=== PATIENT | male | born 1990 | race Hispanic/Latino ===

== ENCOUNTER 2024-06-13 07:45 | Outpatient (CLI) | payer OTHER ==
[2024-06-13 09:00] LABS: #Basophils 0.01 10x3/uL (0.0-0.2); #Eosinophils 0.14 10x3/uL (0.0-0.5); #Monocytes 0.71 10x3/uL (0.0-1.1); %Basophils 0.1 % (0.0-2.0); %Eosinophils 1.9 % (0.0-6.0); %Lymphocytes 24.4 % (18.0-47.0); %Monocytes 9.4 % (0.0-10.0); %Neutrophils 63.8 % (40.0-75.0); Hematocrit 48.2 % (38.8-50.0); Hemoglobin 15.3 g/dL (13.5-17.5); Mean Corpuscular HGB CONC 31.7 g/dL (32.0-36.0); Mean Corpuscular Hemoglobin 28.2 pg (27.0-33.0); Mean Corpuscular Volume 88.9 fL (81.2-95.1); Mean Platelet Volume 10.5 fL (7.4-10.4); Platelet Count 295 10x3/uL (150-450); Red Blood Cell (RBC) Count 5.42 10x6/uL (4.32-5.72); White Blood Cell (WBC) Count 7.5 10x3/uL (3.5-10.5)
[2024-06-13 09:54] LABS: Anion Gap 14 mmol/L (10-20); BUN (Urea Nitrogen) 10 mg/dL (8.9-20.6); Calc. Creatinine Clearance 0 mL/min (70-130); Calcium 9.4 mg/dL (7.8-10.44); Carbon Dioxide 24 mmol/L (22-29); Chloride 105 mmol/L (98-107); Estimated GFR 120; Glucose 104 mg/dL (70-105); Potassium 4.2 mmol/L (3.5-5.1); Sodium 139 mmol/L (136-145)
== END 2024-06-13 07:46 | disposition home or self-care (01) ==
LOC: CSHLAB 07:45
PROVIDERS: ATTEND Specialist
DX: Z01.818 Encounter for other preprocedural examination (principal); K60.30 Anal fistula, unspecified
CPT/HCPCS: 80048; 85025; 93005; 93010

== ENCOUNTER 2024-06-17 10:06 | Day surgery (SDC) | payer OTHER ==
[2024-06-13 08:14] VITALS: BMI 44.0
[2024-06-17] MEDS ORDERED: Ketorolac Tromethamine 30 MG (1 mL) VIAL ONE (10:29)
[2024-06-17] MEDS ORDERED: Acetaminophen 500 MG TAB ONE (10:30)
[2024-06-17] MEDS ORDERED: Lidocaine 2% 6 ML (Jelly) SYR ONE (11:47)
[2024-06-17] MEDS ORDERED: Bupivacaine HCl 0.5%/Epinephrine 1:200,000/PF 30 ml Vial ONE (11:47)
[2024-06-17] MEDS ORDERED: ceFOXitin 1 GM VIAL ONE (12:26)
[2024-06-17] MEDS ORDERED: fentaNYL 50 mcg/mL 1 mL Vial ONE ×2 (12:37→12:59)
[2024-06-17] MEDS ORDERED: PROPOFOL 20 ML ONE (12:37)
[2024-06-17] MEDS ORDERED: Lidocaine 1% PF 5 ML VIAL ONE (12:37)
[2024-06-17] MEDS ORDERED: Ondansetron PF 4 MG/2 ML Vial ONE (12:59)
[2024-06-17] MEDS ORDERED: Sevoflurane 250 ML INH ANEST BOTTLE ONE (13:37)
[2024-06-17] MEDS ORDERED: HYDROcodone/Acetaminophen 5/325 mg Tablet ONE (14:22)
== END 2024-06-17 14:50 | disposition home or self-care (01) ==
LOC: CSHSDC 10:06
PROVIDERS: ATTEND Specialist
DX: K60.30 Anal fistula, unspecified (principal)
CPT/HCPCS: J0694; J1885; J2405; J2704; J3010